=== PATIENT | female | born 1975 | race Asian ===

== ENCOUNTER 2016-10-03 13:40 | Inpatient (IN) | payer MEDICAID, OTHER ==
[~2016-10-03] VITALS: Ht 167.6 cm; Wt 80.3 kg
[2016-10-03] MEDS ORDERED: LORazepam 2 MG/ML VIAL IM ONE (14:30)
[2016-10-03] MEDS ORDERED: HALOPERIDOL 5 MG TABLET PO ONE (14:30)
[2016-10-03] MEDS ORDERED: HALOPERIDOL LACTATE 5 MG/ML VIAL IM ONE (14:30)
[2016-10-03] MEDS ORDERED: LORazepam 2 MG TABLET PO ONE (14:30)
[2016-10-03] MEDS ORDERED: DiphenhydrAMINE HCL 50 MG/ML VIAL ONE (14:32)
[2016-10-03] MEDS ORDERED: HALOPERIDOL LACTATE 5 MG/ML VIAL ONE (14:32)
[2016-10-03] MEDS ORDERED: LORazepam 2 MG/ML VIAL ONE (14:32)
[2016-10-03 16:43] LABS: BASOPHILS % (AUTO) 0.3 % (0.0-2.0); EOSINOPHILS % (AUTO) 0.5 % (1.0-6.0); HEMATOCRIT 37.5 % (36-46); HEMOGLOBIN 12.1 g/dL (12.0-16.0); LYMPHOCYTES # (AUTO) 1.8 K/uL (1.0-4.8); LYMPHOCYTES % (AUTO) 22.4 % (22.0-44.0); MEAN CORPUSCULAR HGB CONC 32.1 G/dL (31.0-37.0); MEAN CORPUSCULAR VOLUME 84 fL (80-100); MONOCYTES # (AUTO) 0.6 K/uL (0.1-1.0); NEUTROPHILS # (AUTO) 5.7 K/uL (1.8-7.7); NEUTROPHILS % (AUTO) 69.8 % (40.0-70.0); PLATELET COUNT (AUTO) 389 K/uL (150-450); RED BLOOD CELL COUNT(AUTO) 4.46 MIL/uL (4.00-5.20); RED CELL DISTRIBUTION WIDTH 15.2 % (11.5-14.5); WHITE BLOOD COUNT (AUTO) 8.2 K/uL (4.5-11.0)
[2016-10-03] MEDS ORDERED: ZOLPIDEM TARTRATE 10 MG TABLET PO PRN (17:00)
[2016-10-03] MEDS ORDERED: HALOPERIDOL 5 MG TABLET PO PRN (17:00)
[2016-10-03] MEDS ORDERED: LORazepam 2 MG TABLET PO PRN (17:00)
[2016-10-03 17:14] LABS: ALANINE AMINOTRANSFERASE 31 U/L (12-78); ALBUMIN 3.2 g/dL (3.4-5.0); ANION GAP 10 mmol/L (8-16); ASPARTATE AMINOTRANSFERASE 22 U/L (15-37); BILIRUBIN,TOTAL 0.3 mg/dL (0.1-1.0); CALCIUM, TOTAL 8.7 mg/dL (8.8-10.5); CARBON DIOXIDE 25 mmol/L (22-29); CHLORIDE 101 mmol/L (98-107); CREATININE 0.69 mg/dL (0.60-1.30); GLOMERULAR FILTR. RATE CALC > 60 mL/min (>60); POTASSIUM 4.1 mmol/L (3.5-5.1); SODIUM SERUM 136 mmol/L (136-145); TOTAL PROTEIN, SERUM 7.4 g/dL (6.4-8.2); UREA NITROGEN, BLOOD 8 mg/dL (7-18)
[2016-10-03 18:20] VITALS: BP 128/74
[2016-10-03] MEDS ORDERED: INFLUENZA VIRUS VACCINE QVS 2016-17 (3YR+)/PF 60 MCG/0.5 ML SYRINGE IM ONE (18:45)
[2016-10-04 04:03] VITALS: BP 130/80
[2016-10-04 08:30] VITALS: BP 116/72
[2016-10-04] MEDS ORDERED: ACETAMINOPHEN 325 MG TABLET PO PRN (10:00)
[2016-10-04] MEDS ORDERED: IBUPROFEN 400 MG TABLET PO PRN (10:00)
[2016-10-04 15:55] VITALS: BP 119/72
[2016-10-04 16:20] VITALS: BP 119/72
[2016-10-05 08:42] VITALS: BP 126/82
[2016-10-05 08:51] LABS: GLUCOSE, URINE (UA) NEGATIVE (NEGATIVE); KETONES,URINE NEGATIVE (NEGATIVE); LEUKOCYTE ESTERASE ,URINE NEGATIVE (NEGATIVE); OCCULT BLOOD,URINE NEGATIVE (NEGATIVE); PH,URINE 7.5 (5.0-8.0); PROTEIN,URINE NEGATIVE (NEGATIVE)
[2016-10-05 09:03] LABS: ADD UA MICROSCOPIC NO; APPEARANCE,URINE HAZY (CLEAR)
[2016-10-05 09:19] LABS: HEMOGLOBIN A1C 5.7 % (4.5-6.2)
[2016-10-05 09:51] LABS: CHOL/HDL RATIO 4.6 (3.9-5.7); THYROID STIMULATING HORMONE 1.05 uIU/mL (0.36-3.74)
[2016-10-05 16:10] VITALS: BP 111/62
[2016-10-06 08:24] VITALS: BP 122/74
[2016-10-06 16:00] VITALS: BP 128/86
[2016-10-06] MEDS: RisperiDONE 2 MG TABLET PO SCH (17:00)
[2016-10-06] MEDS: DIVALPROEX SODIUM 500 MG DR TABLET PO SCH (17:00)
[2016-10-07 08:32] VITALS: BP 112/74
[2016-10-07] MEDS: RisperiDONE 2 MG TABLET PO SCH ×2 (09:00→17:00)
[2016-10-07] MEDS: DIVALPROEX SODIUM 500 MG DR TABLET PO SCH ×2 (09:00→17:00)
[2016-10-07 16:31] VITALS: BP 114/77
[2016-10-08 07:04] VITALS: BP 117/83
[2016-10-08 08:40] VITALS: BP 102/62
[2016-10-08] MEDS: RisperiDONE 2 MG TABLET PO SCH ×2 (09:00→17:00)
[2016-10-08] MEDS: DIVALPROEX SODIUM 500 MG DR TABLET PO SCH ×2 (09:00→17:00)
[2016-10-08 16:02] VITALS: BP 113/60
[2016-10-09 08:40] VITALS: BP 116/81
[2016-10-09] MEDS: RisperiDONE 2 MG TABLET PO SCH ×2 (08:41→17:00)
[2016-10-09] MEDS: DIVALPROEX SODIUM 500 MG DR TABLET PO SCH ×2 (08:41→17:00)
[2016-10-09 16:14] VITALS: BP 119/65
[2016-10-10 07:10] VITALS: BP 110/72
[2016-10-10 08:19] VITALS: BP 113/66
[2016-10-10] MEDS: RisperiDONE 2 MG TABLET PO SCH ×2 (09:00→16:51)
[2016-10-10] MEDS: DIVALPROEX SODIUM 500 MG DR TABLET PO SCH ×2 (09:00→16:51)
[2016-10-10 16:00] VITALS: BP 116/74
[2016-10-11 05:34] VITALS: BP 105/67
[2016-10-11 08:11] VITALS: BP 129/74
[2016-10-11] MEDS: RisperiDONE 2 MG TABLET PO SCH ×2 (08:15→17:00)
[2016-10-11] MEDS: DIVALPROEX SODIUM 500 MG DR TABLET PO SCH ×2 (08:15→17:00)
[2016-10-11 16:11] VITALS: BP 120/91
[2016-10-11] MEDS ORDERED: HALOPERIDOL LACTATE 5 MG/ML VIAL IM PRN (16:30)
[2016-10-12 06:08] VITALS: BP 115/65
[2016-10-12] MEDS: RisperiDONE 2 MG TABLET PO SCH ×2 (08:26→16:27)
[2016-10-12] MEDS: DIVALPROEX SODIUM 500 MG DR TABLET PO SCH ×2 (08:26→16:27)
[2016-10-12 08:28] VITALS: BP 115/65
[2016-10-12 16:08] VITALS: BP 127/68
[2016-10-13 07:07] VITALS: BP 110/70
[2016-10-13] MEDS: RisperiDONE 2 MG TABLET PO SCH ×2 (08:16→16:03)
[2016-10-13] MEDS: DIVALPROEX SODIUM 500 MG DR TABLET PO SCH ×2 (08:16→16:03)
[2016-10-13 08:42] VITALS: BP 107/55
[2016-10-13 16:14] VITALS: BP 122/71
[2016-10-14 06:15] VITALS: BP 117/73
[2016-10-14 08:34] VITALS: BP 111/73
[2016-10-14] MEDS: DIVALPROEX SODIUM 500 MG DR TABLET PO SCH ×2 (09:05→16:15)
[2016-10-14] MEDS: RisperiDONE 2 MG TABLET PO SCH ×2 (09:05→16:15)
[2016-10-14 16:04] VITALS: BP 112/59
[2016-10-15 06:04] VITALS: BP 124/74
[2016-10-15] MEDS: RisperiDONE 2 MG TABLET PO SCH ×2 (08:47→16:50)
[2016-10-15] MEDS: DIVALPROEX SODIUM 500 MG DR TABLET PO SCH ×2 (08:47→16:50)
[2016-10-15 08:49] VITALS: BP 125/74
[2016-10-15 16:02] VITALS: BP 135/70
[2016-10-16 06:50] VITALS: BP 124/78
[2016-10-16 08:27] VITALS: BP 118/67
[2016-10-16] MEDS: RisperiDONE 2 MG TABLET PO SCH ×2 (08:37→16:46)
[2016-10-16] MEDS: DIVALPROEX SODIUM 500 MG DR TABLET PO SCH ×2 (08:37→16:46)
[2016-10-16 16:25] VITALS: BP 120/75
[2016-10-17 03:49] VITALS: BP 110/80
[2016-10-17] MEDS: RisperiDONE 2 MG TABLET PO SCH ×2 (08:33→16:11)
[2016-10-17] MEDS: DIVALPROEX SODIUM 500 MG DR TABLET PO SCH ×2 (08:33→16:11)
[2016-10-17 08:35] VITALS: BP 112/69
[2016-10-17 16:35] VITALS: BP 112/72
[2016-10-18] MEDS: RisperiDONE 2 MG TABLET PO SCH ×2 (08:24→16:11)
[2016-10-18] MEDS: DIVALPROEX SODIUM 500 MG DR TABLET PO SCH ×2 (08:24→16:11)
[2016-10-18 08:51] VITALS: BP 114/79
[2016-10-18 16:07] VITALS: BP 114/73
[2016-10-19 00:04] VITALS: BP 125/77
[2016-10-19 08:32] VITALS: BP 117/78
[2016-10-19] MEDS: RisperiDONE 2 MG TABLET PO SCH ×2 (08:39→16:52)
[2016-10-19] MEDS: DIVALPROEX SODIUM 500 MG DR TABLET PO SCH ×2 (08:39→16:52)
[2016-10-19 16:23] VITALS: BP 122/80
[2016-10-20 00:39] VITALS: BP 113/69
[2016-10-20] MEDS: RisperiDONE 2 MG TABLET PO SCH ×2 (08:11→16:13)
[2016-10-20] MEDS: DIVALPROEX SODIUM 500 MG DR TABLET PO SCH ×2 (08:11→16:13)
[2016-10-20 08:32] VITALS: BP 115/70
[2016-10-20 16:14] VITALS: BP 105/60
[2016-10-21 00:02] VITALS: BP 109/70
[2016-10-21 08:45] VITALS: BP 121/64
[2016-10-21] MEDS: RisperiDONE 2 MG TABLET PO SCH ×2 (09:02→16:33)
[2016-10-21] MEDS: DIVALPROEX SODIUM 500 MG DR TABLET PO SCH ×2 (09:02→16:33)
[2016-10-21 16:00] VITALS: BP 133/71
[2016-10-21] MEDS ORDERED: RISP2 PO (21:22)
[2016-10-21] MEDS ORDERED: DIVA500T35 PO (21:22)
[2016-10-22 04:40] VITALS: BP 124/68
[2016-10-22] MEDS: DIVALPROEX SODIUM 500 MG DR TABLET PO SCH (08:32)
[2016-10-22] MEDS: RisperiDONE 2 MG TABLET PO SCH (08:33)
[2016-10-22 08:46] VITALS: BP 117/75
[2016-10-22] MEDS ORDERED: RISP2 PO (09:27)
== END 2016-10-22 13:55 | disposition home or self-care (01) | DRG 750 ==
LOC: EMS 13:42 → B3A 16:55 → B2S 10-18 10:56
PROVIDERS: ADMIT Psychiatry & Neurology Psychiatry; ATTEND Psychiatry & Neurology Psychiatry
DX: F20.0 Paranoid schizophrenia (principal); E83.51 Hypocalcemia; F41.9 Anxiety disorder, unspecified; F31.9 Bipolar disorder, unspecified; Z91.19 Patient's noncompliance with other medical treatment and regimen; Z28.21 Immunization not carried out because of patient refusal
CPT/HCPCS: 80307; 83036; 84443; 87081; 93005; 96372; 99285; G0480; J1200; J1630; J2060

== ENCOUNTER 2017-07-17 07:49 | Inpatient (IN) | payer MEDICAID ==
[~2017-07-17] VITALS: Ht 167.6 cm; Wt 92.5 kg
[~2017-07-17 07:49] MED LIST: DIVA500T35 PO; RISP2 PO
[2017-07-17 08:32] VITALS: BP 143/87
[2017-07-17] MEDS ORDERED: OLANZapine 5 MG RAPDIS TABLET PO PRN (08:45)
[2017-07-17] MEDS ORDERED: LORazepam 2 MG TABLET PO PRN (08:45)
[2017-07-17] MEDS ORDERED: ZOLPIDEM TARTRATE 10 MG TABLET PO PRN (08:45)
[2017-07-17] MEDS ORDERED: INFLUENZA VIRUS VACCINE QVS 2017-18 (3YR+)/PF 60 MCG/0.5 ML SYRINGE IM ONE (10:45)
[2017-07-17] MEDS ORDERED: PROMETHAZINE HCL 25 MG TABLET PO PRN (11:45)
[2017-07-17] MEDS ORDERED: MAG HYDROX/AL HYDROX/SIMETH ES 30 ML SUSPENSION UDCUP PO PRN (11:45)
[2017-07-17] MEDS ORDERED: ACETAMINOPHEN 325 MG TABLET PO PRN (11:45)
[2017-07-17] MEDS ORDERED: RisperiDONE 1 MG TABLET PO PRN (11:45)
[2017-07-17] MEDS ORDERED: LOPERAMIDE HCL 2 MG CAPSULE PO PRN (11:45)
[2017-07-17] MEDS ORDERED: GuaiFENesin/D-METHORPHAN [SUGAR-FREE] 200-20MG/10 ML SYRUP UDCUP PO PRN (11:45)
[2017-07-17] MEDS ORDERED: TUBERCULIN, PURIFIED PROTEIN DERIVATIVE 5 TU/0.1 ML SYG ID ONE (11:45)
[2017-07-17] MEDS ORDERED: MAGNESIUM HYDROXIDE SUSPENSION 30 ML UDCUP PO PRN (11:45)
[2017-07-17] MEDS ORDERED: HydrOXYzine PAMOATE 50 MG CAPSULE PO PRN (11:45)
[2017-07-17 16:21] VITALS: BP 134/89
[2017-07-17 18:09] VITALS: BP 134/85
[2017-07-17] MEDS: THIAMINE HCL 100 MG TABLET PO SCH (18:27)
[2017-07-17] MEDS: DIVALPROEX SODIUM 500 MG ER TABLET PO SCH (20:19)
[2017-07-17] MEDS: OLANZapine 5 MG RAPDIS TABLET PO SCH (20:20)
[2017-07-17] MEDS: RisperiDONE 3 MG TABLET PO SCH (20:20)
[2017-07-17] MEDS ORDERED: DIVALPROEX SODIUM 500 MG ER TABLET PO SCH (21:00)
[2017-07-18 06:35] VITALS: BP 131/80
[2017-07-18 08:16] LABS: APPEARANCE,URINE CLEAR (CLEAR); GLUCOSE, URINE (UA) NEGATIVE (NEGATIVE); KETONES,URINE NEGATIVE (NEGATIVE); LEUKOCYTE ESTERASE ,URINE NEGATIVE (NEGATIVE); OCCULT BLOOD,URINE NEGATIVE (NEGATIVE); PROTEIN,URINE NEGATIVE (NEGATIVE)
[2017-07-18 08:18] LABS: ADD UA MICROSCOPIC NO
[2017-07-18 08:30] VITALS: BP 130/80
[2017-07-18] MEDS: THIAMINE HCL 100 MG TABLET PO SCH ×2 (09:00→16:35)
[2017-07-18] MEDS: FOLIC ACID 1 MG TABLET PO SCH (09:00)
[2017-07-18] MEDS: MULTIVITAMINS WITH MINERALS, THERAPEUTIC TABLET PO SCH (09:00)
[2017-07-18] MEDS ORDERED: IBUPROFEN 400 MG TABLET PO PRN (14:30)
[2017-07-18] MEDS ORDERED: ACETAMINOPHEN 325 MG TABLET PO PRN (14:30)
[2017-07-18 16:34] VITALS: BP 126/60
[2017-07-18] MEDS ORDERED: INFLUENZA VIRUS VACCINE QVS 2017-18 (3YR+)/PF 60 MCG/0.5 ML SYRINGE IM ONE (16:45)
[2017-07-18] MEDS: DIVALPROEX SODIUM 500 MG ER TABLET PO SCH (20:45)
[2017-07-18] MEDS: OLANZapine 5 MG RAPDIS TABLET PO SCH (20:46)
[2017-07-18] MEDS: RisperiDONE 3 MG TABLET PO SCH (20:46)
[2017-07-19 06:35] VITALS: BP 118/69
[2017-07-19 08:14] LABS: BASOPHILS % (AUTO) 0.1 % (0.0-2.0); EOSINOPHILS % (AUTO) 2.3 % (1.0-6.0); HEMATOCRIT 38.3 % (36-46); HEMOGLOBIN 12.7 g/dL (12.0-16.0); LYMPHOCYTES # (AUTO) 1.9 K/uL (1.0-4.8); LYMPHOCYTES % (AUTO) 26.7 % (22.0-44.0); MEAN CORPUSCULAR HEMOGLOBIN 28.4 pg (26.0-34.0); MEAN CORPUSCULAR HGB CONC 33.2 G/dL (31.0-37.0); MEAN CORPUSCULAR VOLUME 86 fL (80-100); MONOCYTES # (AUTO) 0.4 K/uL (0.1-1.0); MONOCYTES % (AUTO) 5.9 % (2.0-9.0); NEUTROPHILS # (AUTO) 4.7 K/uL (1.8-7.7); PLATELET COUNT (AUTO) 358 K/uL (150-450); RED BLOOD CELL COUNT(AUTO) 4.47 MIL/uL (4.00-5.20); WHITE BLOOD COUNT (AUTO) 7.2 K/uL (4.5-11.0)
[2017-07-19 08:29] LABS: PREGNANCY RESULT, SERUM NEGATIVE (NEGATIVE)
[2017-07-19] MEDS: MULTIVITAMINS WITH MINERALS, THERAPEUTIC TABLET PO SCH (08:30)
[2017-07-19] MEDS: THIAMINE HCL 100 MG TABLET PO SCH ×2 (08:30→16:09)
[2017-07-19] MEDS: FOLIC ACID 1 MG TABLET PO SCH (08:30)
[2017-07-19 08:34] LABS: HEMOGLOBIN A1C 6.2 % (4.5-6.2)
[2017-07-19 08:35] VITALS: BP 130/67
[2017-07-19 08:37] LABS: ALANINE AMINOTRANSFERASE 21 U/L (12-78); ALBUMIN 3.2 g/dL (3.4-5.0); ANION GAP 8 mmol/L (8-16); ASPARTATE AMINOTRANSFERASE 13 U/L (15-37); BILIRUBIN,TOTAL 0.2 mg/dL (0.1-1.0); CARBON DIOXIDE 26 mmol/L (22-29); CHLORIDE 105 mmol/L (98-107); CHOL/HDL RATIO 3.2 (3.9-5.7); CREATININE 0.61 mg/dL (0.60-1.30); GLOMERULAR FILTR. RATE CALC > 60 mL/min (>60); POTASSIUM 4.2 mmol/L (3.5-5.1); SODIUM SERUM 139 mmol/L (136-145); THYROID STIMULATING HORMONE 1.31 uIU/mL (0.36-3.74); TOTAL PROTEIN, SERUM 6.9 g/dL (6.4-8.2); UREA NITROGEN, BLOOD 9 mg/dL (7-18)
[2017-07-19 08:38] LABS: BILIRUBIN,DIRECT < 0.05 mg/dL (0.00-0.20)
[2017-07-19 16:00] VITALS: BP 119/73
[2017-07-19 16:47] LABS: RAPID PLASMA REAGIN NONREACTIVE (NONREACTIVE)
[2017-07-19] MEDS: DIVALPROEX SODIUM 500 MG ER TABLET PO SCH (20:16)
[2017-07-19] MEDS: OLANZapine 5 MG RAPDIS TABLET PO SCH (20:16)
[2017-07-19] MEDS: RisperiDONE 3 MG TABLET PO SCH (20:16)
[2017-07-20 06:37] VITALS: BP 119/60
[2017-07-20] MEDS: THIAMINE HCL 100 MG TABLET PO SCH ×2 (08:35→16:26)
[2017-07-20] MEDS: MULTIVITAMINS WITH MINERALS, THERAPEUTIC TABLET PO SCH (08:35)
[2017-07-20] MEDS: FOLIC ACID 1 MG TABLET PO SCH (08:36)
[2017-07-20 08:56] VITALS: BP 107/62
[2017-07-20 16:22] VITALS: BP 124/88
[2017-07-20] MEDS: DIVALPROEX SODIUM 500 MG ER TABLET PO SCH (20:41)
[2017-07-20] MEDS: OLANZapine 5 MG RAPDIS TABLET PO SCH (20:41)
[2017-07-20] MEDS: DiphenhydrAMINE HCL 25 MG CAPSULE PO SCH (20:41)
[2017-07-21 01:05] VITALS: BP 119/67
[2017-07-21] MEDS: THIAMINE HCL 100 MG TABLET PO SCH ×2 (08:00→16:16)
[2017-07-21] MEDS: MULTIVITAMINS WITH MINERALS, THERAPEUTIC TABLET PO SCH (08:00)
[2017-07-21] MEDS: FOLIC ACID 1 MG TABLET PO SCH (08:00)
[2017-07-21 09:23] VITALS: BP 112/65
[2017-07-21 16:00] VITALS: BP 137/79
[2017-07-21] MEDS: DiphenhydrAMINE HCL 25 MG CAPSULE PO SCH (20:30)
[2017-07-21] MEDS: DIVALPROEX SODIUM 500 MG ER TABLET PO SCH (20:31)
[2017-07-21] MEDS: OLANZapine 5 MG RAPDIS TABLET PO SCH (20:31)
[2017-07-22 06:30] VITALS: BP 119/69
[2017-07-22] MEDS: FOLIC ACID 1 MG TABLET PO SCH (08:07)
[2017-07-22] MEDS: MULTIVITAMINS WITH MINERALS, THERAPEUTIC TABLET PO SCH (08:07)
[2017-07-22] MEDS: THIAMINE HCL 100 MG TABLET PO SCH ×2 (08:07→16:33)
[2017-07-22 08:46] VITALS: BP 126/71
[2017-07-22 16:30] VITALS: BP 131/77
[2017-07-22] MEDS: DiphenhydrAMINE HCL 25 MG CAPSULE PO SCH (20:22)
[2017-07-22] MEDS: DIVALPROEX SODIUM 500 MG ER TABLET PO SCH (20:22)
[2017-07-22] MEDS ORDERED: OLANZapine 10 MG RAPDIS TABLET PO SCH (21:00)
[2017-07-23 03:08] VITALS: BP 121/76
[2017-07-23] MEDS: THIAMINE HCL 100 MG TABLET PO SCH (09:43)
[2017-07-23] MEDS: MULTIVITAMINS WITH MINERALS, THERAPEUTIC TABLET PO SCH (09:43)
[2017-07-23] MEDS: FOLIC ACID 1 MG TABLET PO SCH (09:43)
[2017-07-23] MEDS ORDERED: DIVA500T52 PO (11:34)
[2017-07-23] MEDS ORDERED: OLAN10TA22 PO (11:34)
== END 2017-07-23 13:30 | disposition home or self-care (01) | DRG 750 ==
LOC: B3A 08:51
PROVIDERS: ADMIT Psychiatry & Neurology Psychiatry; ATTEND Psychiatry & Neurology Psychiatry
DX: F20.0 Paranoid schizophrenia (principal); Z59.0 Homelessness; E78.5 Hyperlipidemia, unspecified; F17.210 Nicotine dependence, cigarettes, uncomplicated; G47.00 Insomnia, unspecified; Z65.3 Problems related to other legal circumstances; Z68.33 Body mass index [BMI] 33.0-33.9, adult; Z79.899 Other long term (current) drug therapy; Z28.21 Immunization not carried out because of patient refusal
CPT/HCPCS: 80307; 82248; 83036; 84439; 84443; 86592; 90471; 93970